=== PATIENT | male | born 1955 | race Caucasian/White ===

== ENCOUNTER 2019-06-19 07:39 | Day surgery (SDC) | payer BC ==
[~2019-06-19 07:39] MED LIST: Lactated Ringers 1,000 ML IV SCH; Lidocaine 1%/Sod Bicarbonate in NS 8.4% 1 ML Syringe IDERM PRN; Sodium Chloride 0.9% 10 ML Syringe FLUSH PRN
[2019-06-19] MEDS ORDERED: Lidocaine 1% 4 ML ONE (09:07)
[2019-06-19] MEDS ORDERED: Propofol 200 MG/20 ML SDV ONE ×2 (09:07→09:44)
--- NOTE | 2019-06-19 09:30 | PCM.PREANE ---
Preanesthetic Assessment - Anesthesia/Transfusion/Family Hx Anesthesia History: Prior Anesthesia Without Reaction Family History of Anesthesia Reaction: No Transfusion History: No Prior Transfusion(s) - Review of Systems General: No Symptoms Pulmonary: No Symptoms Cardiovascular: No Symptoms Gastrointestinal: No Symptoms Neurological: No Symptoms Other: Reports: None - Physical Assessment NPO Status Date: 06/18/19 NPO Status Time: 19:00 Vital Signs: Last Vital Signs Temp 36.8 C 06/19/19 07:55 Pulse 95 06/19/19 07:55 Resp 16 06/19/19 07:55 BP 134/91 H 06/19/19 07:55 Pulse Ox 94 L 06/19/19 07:55 Height: 1.75 m Weight: 104.78 kg ASA Class: 2 Mental Status: Alert & Oriented x3 Airway Class: Mallampati = 2 Dentition: Reports: Normal Dentition Thyro-Mental Finger Breadths: 3 Mouth Opening Finger Breadths: 3 ROM/Head Extension: Full Lungs: Clear to Auscultation, Normal Respiratory Effort Cardiovascular: Regular Rate, Regular Rhythm - Lab Values: Laboratory Last Values POC Glucose 127 mg/dL (80-115) H 06/19/19 08:55 - Allergies Allergies/Adverse Reactions: Allergies Allergy/AdvReac Type Severity Reaction Status Date / Time No Known Allergies Allergy Verified 06/18/19 17:56 - Acknowledgements Anesthesia Type Planned: MAC Pt an Appropriate Candidate for the Planned Anesthesia: Yes Alternatives and Risks of Anesthesia Discussed w Pt/Guardian: Yes Pt/Guardian Understands and Agrees with Anesthesia Plan: Yes PreAnesthesia Questionnaire HEENT History: Reports: Impaired Vision Cardiovascular History: Reports: High Cholesterol, Hypertension Respiratory History: Reports: None Genitourinary History: Reports: None Musculoskeletal History: Reports: Gout, Osteoporosis Neurological History: Reports: None Psychiatric History: Reports: None Endocrine/Metabolic History: Reports: Diabetes, Type II (pt denies DM, states is borderline so on short term medication and diet and recheck in 4 months BS 127 @ 0855) Hematologic History: Reports: None Immunologic History: Reports: None Oncologic (Cancer) History: Reports: None Dermatologic History: Reports: None - Past Surgical History Head Surgeries/Procedures: Reports: None Cardiovascular Surgical History: Reports: None Respiratory Surgical History: Reports: None GI Surgical History: Reports: Colonoscopy Female Surgical History: Reports: None Male Surgical History: Reports: None Endocrine Surgical History: Reports: None Neurological Surgical History: Reports: None Musculoskeletal Surgical History: Reports: Knee Replacement, Shoulder Surgery Oncologic Surgical History: Reports: None Dermatological Surgical History: Reports: None - SUBSTANCE USE Smoking Status *Q: Former Smoker Recreational Drug Use History: No - HOME MEDS Home Medications: Home Meds Cholecalciferol (Vitamin D3) [Vitamin D3] 1,000 unit PO DAILY 06/18/19 [History] Lisinopril/Hydrochlorothiazide [Lisinopril-Hctz 10-12.5 mg Tab] 1 tab PO DAILY 06/18/19 [History] Multivitamin [Zoo Chews] 1 tab PO DAILY 06/18/19 [History] Simvastatin 20 mg PO DAILY 06/18/19 [History] metFORMIN HCl [Metformin HCl] 500 mg PO DAILY 06/18/19 [History] - CURRENT (IN HOUSE) MEDS Current Meds: Current Medications Lactated Ringer's (Ringers, Lactated) 1,000 mls @ 125 mls/hr IV ASDIRECTED CANDIDA Stop: 06/19/19 23:00 Last Admin: 06/19/19 08:15 Dose: 125 mls/hr Lidocaine/Sodium Bicarbonate (Buffered Lidocaine 1% In Ns 8.4%) 0.25 ml IDERM ONETIME PRN PRN Reason: Prior to IV Start Stop: 06/19/19 18:00 Last Admin: 06/19/19 08:14 Dose: 0.25 ml Sodium Chloride (Saline Flush) 10 ml FLUSH ASDIRECTED PRN PRN Reason: Keep Vein Open Stop: 06/19/19 18:00 Discontinued Medications Lidocaine HCl (Xylocaine-Mpf 1%) Confirm Administered Dose 4 mls @ as directed .ROUTE .STK-MED ONE Stop: 06/19/19 09:08 Propofol (Diprivan 20 Ml) Confirm Administered Dose 200 mg .ROUTE .STK-MED ONE Stop: 06/19/19 09:08
--- NOTE | 2019-06-19 10:24 | PCM48HPAN ---
Post Anesthesia Note - EVALUATION WITHIN 48HRS OF ANESTHETIC Vital Signs in Normal Range: Yes Patient Participated in Evaluation: Yes Respiratory Function Stable: Yes Airway Patent: Yes Cardiovascular Function Stable: Yes Hydration Status Stable: Yes Pain Control Satisfactory: Yes Nausea and Vomiting Control Satisfactory: Yes Mental Status Recovered: Yes Vital Signs: Last Vital Signs Temp 36.1 C 06/19/19 10:18 Pulse 72 06/19/19 10:18 Resp 16 06/19/19 10:18 BP 117/84 06/19/19 10:18 Pulse Ox 95 06/19/19 10:18
--- NOTE | 2019-06-19 10:58 | PCM.PRNOTE ---
- Free Text/Narrative Note: Date: 06/19/2019 Procedure: screening colonoscopy Endoscopist: Davy Giles MD Findings: fair prep. Ileocecal valve visualized. One single subcentimeter pedunculated polyp biopsied. No diverticular or hemorrhoidal disease noted. Detailed Report: The patient was taken to the endoscopy suite and placed in left lateral decubitus position. Timeout was performed, and monitored anesthesia care was initiated. Visual inspection of the anus revealed no abnormality. Digital rectal exam was unremarkable, the prostate felt normal. The lubricated colonoscope was inserted and advanced all the way to the ileocecal valve. The prep was noted to be fair, with some areas of sticky thick stool. Irrigation was used to clear mucosal surfaces, inspecting for pathology. A single subcentimeter pedunculated polyp was identified near the hepatic flexure. This was snared and cauterized. The polyp was successfully retrieved, and the base of the polyp appeared hemostatic. No additional pathology was identified on withdrawal of the scope. No diverticular disease was noted, no hemorrhoidal disease was noted on retroflexion of the scope within the rectum. The patient tolerated the procedure well. Davy Giles MD General Surgery
== END 2019-06-19 10:54 | disposition home or self-care (01) ==
LOC: JD.SDS 07:39
PROVIDERS: ATTEND Surgery
DX: Z12.11 Encounter for screening for malignant neoplasm of colon (principal); D12.3 Benign neoplasm of transverse colon; I10 Essential (primary) hypertension; E78.00 Pure hypercholesterolemia, unspecified; E11.9 Type 2 diabetes mellitus without complications; M17.10 Unilateral primary osteoarthritis, unspecified knee; Z87.891 Personal history of nicotine dependence; Z79.84 Long term (current) use of oral hypoglycemic drugs; Z79.899 Other long term (current) drug therapy
CPT/HCPCS: 45385; 82962; J2001; J2704; J7120; 00812

== ENCOUNTER 2021-03-30 00:17 | Emergency (ER) | payer BC ==
[2021-03-30] MEDS ORDERED: Ondansetron 4 MG/2 ML SDV IVPUSH ONE (00:32)
[2021-03-30] MEDS ORDERED: HYDROmorphone 1 MG/ML Syringe IVPUSH ONE (00:32)
[2021-03-30] MEDS ORDERED: Sodium Chloride 0.9% 1,000 ML IV SCH (00:45)
--- NOTE | 2021-03-30 00:52 | EDM.PDOC ---
ED HPI GENERAL MEDICAL PROBLEM - General Chief Complaint: Chest Pain Time Seen by Provider: 03/30/21 00:24 Source of Information: Reports: Patient, Family () History Limitations: Reports: Physical Impairment (Pain limiting patient's ability to answer questions) - History of Present Illness INITIAL COMMENTS - FREE TEXT/NARRATIVE: Mr. Garcia is a very pleasant 66-year-old gentleman who now presents the ED stating that he was woken from sleep around 10 minutes prior to coming to the ED with severe left-sided chest pain - he points with 2 fingers just to the left of his upper sternum. He is unable to describe the character of the pain, but states that it is a throbbing pain, made worse with deep breaths and movement. He states that the pain radiates down his left upper extremity and through to his back between his scapula. No associated nausea, dyspnea, diaphoresis, or sense of impending doom. The patient states that he has been experiencing the same pain on and off for the past few weeks. He has seen his chiropractor about it numerous times, including at 18:30 this evening. He states that his chiropractor told him that he has a "rib out". The patient states that he has not been taking any analgesics to address his pain. 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 Here in the ED, the patient's initial BP was found to be elevated at 163/122, otherwise, his vitals were within normal limits. He is afebrile, saturating 100% on room air. He appears to be very uncomfortable, nearly crying in pain. Other than the recurrent pain as described above, the patient denies having a recent fever, chills, sore throat, ear pain, nasal or sinus congestion, cough, dyspnea, palpitations, nausea, vomiting, constipation, diarrhea, abdominal pain, urinary symptoms, recent weight gain or weight loss, recent bloody bowel movements or black bowel movements, recent joint aches, headaches, or rashes. The patient's PCP is DILLON Myers. He has received a COVID vaccination, although no influenza vaccination this season. Left Chest Pain Score (Numeric/FACES): 10 - Related Data Allergies Allergy/AdvReac Type Severity Reaction Status Date / Time No Known Allergies Allergy Verified 03/30/21 00:26 Home Meds: Home Meds Cholecalciferol (Vitamin D3) [Vitamin D3] 1,000 unit PO DAILY 06/18/19 [History] Lisinopril/Hydrochlorothiazide [Lisinopril-Hctz 10-12.5 mg Tab] 1 tab PO DAILY 06/18/19 [History] Multivitamin [Zoo Chews] 1 tab PO DAILY 06/18/19 [History] Simvastatin 20 mg PO DAILY 06/18/19 [History] metFORMIN HCl [Metformin HCl] 500 mg PO DAILY 06/18/19 [History] Orphenadrine [Norflex] 1 tab PO Q12H PRN #14 tab.er 03/30/21 [Rx] Past Medical History HEENT History: Reports: Impaired Vision Cardiovascular History: Reports: High Cholesterol, Hypertension Musculoskeletal History: Reports: Osteoarthritis Endocrine/Metabolic History: Reports: Obesity/BMI 30+, Other (See Below) (Prediabetes) - Past Surgical History HEENT Surgical History: Reports: Oral Surgery (dental extractions) GI Surgical History: Reports: Colonoscopy Musculoskeletal Surgical History: Reports: Knee Replacement (right), Shoulder Surgery (left, arthroscopic) Social & Family History - Tobacco Use Tobacco Use Status *Q: Never Tobacco User Tobacco Use Within Last Twelve Months: Smokeless Tobacco (Previously chewed) - Caffeine Use Caffeine Use: Reports: Energy Drinks - Alcohol Use Alcohol Use History: Yes Alcohol Use Frequency: Socially - Recreational Drug Use Recreational Drug Use: No - Living Situation & Occupation Living situation: Reports: , with Spouse 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 ED EXAM, GENERAL - Physical Exam Exam: See Below Exam Limited By: No Limitations General Appearance: Alert, WD/WN, Moderate Distress (complaining of severe pain - nearly crying) Eye Exam: Bilateral Eye: EOMI, Normal Inspection Ears: Normal External Exam, Hearing Grossly Normal Nose: Normal Inspection Throat/Mouth: Normal Inspection, Normal Lips, Normal Voice, No Airway Compromise Head: Atraumatic, Normocephalic Neck: Normal Inspection, Full Range of Motion Respiratory/Chest: No Respiratory Distress, Lungs Clear, Normal Breath Sounds, No Accessory Muscle Use, Other (Reproducible tenderness to palpation of the chest just left of the sternum. Pain is also reproduced by having the patient press his hands together with outstretched arms in front of him, or taking a deep breath.). No: Decreased Breath Sounds, Crackles, Rhonchi, Wheezing, Stridor, Prolonged Expiration Cardiovascular: Normal Peripheral Pulses, Regular Rate, Rhythm, No Gallop, No JVD, No Murmur, No Rub Peripheral Pulses: 3+: Radial (L), Radial (R) GI/Abdominal: Normal Bowel Sounds, Soft, Non-Tender, No Organomegaly, No Distention, No Abnormal Bruit, No Mass Back Exam: Normal Inspection, Full Range of Motion, NT Extremities: Normal Inspection, Normal Range of Motion, Normal Capillary Refill Neurological: Alert, Oriented, Normal Cognition, No Motor/Sensory Deficits Psychiatric: Anxious Skin Exam: Warm, Dry, Intact, Normal Color, No Rash #1 Interpretation EKG Date: 03/30/21 Time: 00:20 Rhythm: NSR Rate (Beats/Min): 85 [place]: Normal P-Wave: Enlarged (? LAE) QRS: Normal ST-T: Normal (J-point elevation the 2V5, but no T wave inversions or reciprocal ST depressions) QT: Normal Comparison: NA - No Prior EKG Course - Vital Signs Last Recorded V/S: Last Vital Signs Temp 36.5 C 03/30/21 00:23 Pulse 87 03/30/21 00:23 Resp 18 03/30/21 00:23 BP 163/122 H 03/30/21 00:23 Pulse Ox 100 03/30/21 00:23 - Orders/Labs/Meds Orders: Active Orders 24 hr Category Date Time Status Chest 1V Frontal [CR] Stat Exams 03/30/21 00:32 Taken Chest Abdomen Pelvis w Cont [CT] Stat Exams 03/30/21 00:42 Taken Labs: Laboratory Tests 03/30/21 03/30/21 03/30/21 Range/Units 00:25 00:25 00:25 WBC 10.45 H (4.23-9.07) K/mm3 RBC 5.12 (4.63-6.08) M/mm3 Hgb 16.6 (13.7-17.5) gm/dl Hct 47.2 (40.1-51.0) % MCV 92.2 (79.0-92.2) fl MCH 32.4 H (25.7-32.2) pg MCHC 35.2 (32.2-35.5) g/dl RDW Std Deviation 44.3 H (35.1-43.9) fL Plt Count 322 (163-337) K/mm3 MPV 9.2 L (9.4-12.3) fl Neutrophils % (Manual) 37 L (40-60) % Band Neutrophils % 0 (0-10) % Lymphocytes % (Manual) 53 H (20-40) % Atypical Lymphs % 0 % Monocytes % (Manual) 7 (2-10) % Eosinophils % (Manual) 3 (0.8-7.0) % Basophils % (Manual) 0 L (0.2-1.2) Platelet Estimate Adequate RBC Morph Comment Normal D-Dimer, Quantitative 0.47 (0.19-0.50) mg/L Sodium 142 (136-145) mEq/L Potassium 3.3 L (3.5-5.1) mEq/L Chloride 104 (98-107) mEq/L Carbon Dioxide 26 (21-32) mEq/L Anion Gap 15.3 H (5-15) BUN 15 (7-18) mg/dL Creatinine 1.5 H (0.7-1.3) mg/dL Est Cr Clr Drug Dosing 49.75 mL/min Estimated GFR (MDRD) 47 (>60) mL/min BUN/Creatinine Ratio 10.0 L (14-18) Glucose 173 H (70-99) mg/dL Calcium 8.8 (8.5-10.1) mg/dL Total Bilirubin 0.4 (0.2-1.0) mg/dL AST 37 (15-37) U/L ALT 56 (16-63) U/L Alkaline Phosphatase 45 L (46-116) U/L Troponin I < 0.017 (0.00-0.056) ng/mL NT-Pro-B Natriuret Pep (0-125) pg/mL Total Protein 7.5 (6.4-8.2) g/dl Albumin 4.1 (3.4-5.0) g/dl Globulin 3.4 gm/dL Albumin/Globulin Ratio 1.2 (1-2) SARS-CoV-2 RNA (MAULIK) (NEGATIVE) 03/30/21 03/30/21 Range/Units 00:25 01:23 WBC (4.23-9.07) K/mm3 RBC (4.63-6.08) M/mm3 Hgb (13.7-17.5) gm/dl Hct (40.1-51.0) % MCV (79.0-92.2) fl MCH (25.7-32.2) pg MCHC (32.2-35.5) g/dl RDW Std Deviation (35.1-43.9) fL Plt Count (163-337) K/mm3 MPV (9.4-12.3) fl Neutrophils % (Manual) (40-60) % Band Neutrophils % (0-10) % Lymphocytes % (Manual) (20-40) % Atypical Lymphs % % Monocytes % (Manual) (2-10) % Eosinophils % (Manual) (0.8-7.0) % Basophils % (Manual) (0.2-1.2) Platelet Estimate RBC Morph Comment D-Dimer, Quantitative (0.19-0.50) mg/L Sodium (136-145) mEq/L Potassium (3.5-5.1) mEq/L Chloride (98-107) mEq/L Carbon Dioxide (21-32) mEq/L Anion Gap (5-15) BUN (7-18) mg/dL Creatinine (0.7-1.3) mg/dL Est Cr Clr Drug Dosing mL/min Estimated GFR (MDRD) (>60) mL/min BUN/Creatinine Ratio (14-18) Glucose (70-99) mg/dL Calcium (8.5-10.1) mg/dL Total Bilirubin (0.2-1.0) mg/dL AST (15-37) U/L ALT (16-63) U/L Alkaline Phosphatase (46-116) U/L Troponin I (0.00-0.056) ng/mL NT-Pro-B Natriuret Pep 32 (0-125) pg/mL Total Protein (6.4-8.2) g/dl Albumin (3.4-5.0) g/dl Globulin gm/dL Albumin/Globulin Ratio (1-2) SARS-CoV-2 RNA (MAULIK) Negative (NEGATIVE) Meds: Medications Discontinued Medications Generic Name Dose Route Start Last Admin Trade Name Freq PRN Reason Stop Dose Admin Hydromorphone HCl 1 mg 03/30/21 00:32 03/30/21 00:46 Hydromorphone 1 Mg/Ml Syringe IVPUSH 03/30/21 00:33 1 mg ONETIME ONE Administration Sodium Chloride 1,000 mls @ 100 mls/hr 03/30/21 00:45 03/30/21 01:21 Normal Saline IV 100 mls/hr ASDIRECTED CANDIDA Administration Ibuprofen 600 mg 03/30/21 01:47 03/30/21 01:54 Ibuprofen 600 Mg Tab PO 03/30/21 01:48 600 mg ONETIME ONE Administration Ondansetron HCl 4 mg 03/30/21 00:32 03/30/21 00:42 Ondansetron 4 Mg/2 Ml Sdv IVPUSH 03/30/21 00:33 4 mg ONETIME ONE Administration Orphenadrine Citrate 100 mg 03/30/21 01:47 03/30/21 01:54 Orphenadrine 100 Mg Tab.Er PO 03/30/21 01:48 100 mg ONETIME STA Administration - Re-Assessments/Exams Free Text/Narrative Re-Assessment/Exam: 03/30/21 00:48 The 3-week course of his pain, temporarily made better by chiropractic manipulation, the fact that it awoke him from sleep, the severity of the pain and the focal site of it just left of his sternum, and the reproducibility of it with his taking deep breaths, palpation, movement, or flexion of his left pectoralis muscle all indicates a musculoskeletal etiology, however, because of his report that the pain radiates down his left upper extremity and through to his back between his scapula a raises the concern of an aortic dissection. An ECG, obtained at triage, demonstrates some J-point elevations in V2V5, but with no T wave inversions or reciprocal changes. I have therefore ordered a CT angiogram of the aorta to evaluate, along with several blood tests and a portable chest x-ray. In the event that he requires admission or transfer, he will also be swabbed for the SARS-CoV-2 virus. In the meantime, the patient has already been given some IV Dilaudid and IV Zofran. He will be given IV fluid. 03/30/21 01:18 On preliminary review of the CT angiogram of the chest, abdomen, and pelvis, I see no aortic aneurysm or dissection. 03/30/21 01:25 Following IV Dilaudid, patient now appears to be quite comfortable. 03/30/21 01:44 CT angiogram of the chest is read by [facility] as: 1. No aortic dissection. 2. No cause for acute pain is identified. CT angiogram of the abdomen and pelvis is read by [facility] as: 1. No cause for acute pain is identified. 2. No aortic dissection. Portable chest radiograph appears to be grossly normal. The cardiac silhouette is within normal limits. No pulmonary vascular congestion. No pleural effusions seen on this AP view. No focal infiltrate. No pneumothorax. Formal read per the Radiologist pending. The patient's CBC is remarkable for mild leukocytosis of 10.45, but with 0% bandemia, and the remainder of his CBC being unremarkable. His CMP is remarkable for slight hypokalemia of 3.3, a Cr mildly elevated at 1.5 with a BUN normal at 15, and hyperglycemia of 173, with remainder of his CMP being unremarkable. His troponin is undetectably low. His D-dimer is within normal limits at 0.47. Results of the patient's swab for the SARS-CoV-2 virus is still pending. 03/30/21 02:21 The patient's swab for the SARS-CoV-2 virus is negative. 03/30/21 02:35 Test results discussed with the patient and his . At this time, he is pain- free, and appears comfortable. I explained that his chest pain was most likely musculoskeletal in etiology. He has been started on Norflex and ibuprofen, and I will submit a prescription for Norflex to the [facility]. He will take work off today. Departure - Departure Time of Disposition: 02:36 Disposition: Home, Self-Care 01 Condition: Good Clinical Impression: Musculoskeletal chest pain, Hyperglycemia, Renal insufficiency - Discharge Information *PRESCRIPTION DRUG MONITORING PROGRAM REVIEWED*: Not Applicable *COPY OF PRESCRIPTION DRUG MONITORING REPORT IN PATIENT LARRY: Not Applicable Prescriptions: Orphenadrine [Norflex] 1 tab PO Q12H PRN #14 tab.er PRN Reason: Muscle Spasm - Painful Instructions: Hyperglycemia, [id number], Nonspecific Chest Pain, Adult, [id number] Referrals: Brendan Betts PA-C [Physician [employer] And Se[employer] Manager] - Forms: ED Department Discharge Additional Instructions: You were seen in the emergency room after being woken with severe left-sided chest pain radiating through to your back and down your left arm. Work-up in the ER included numerous blood tests, a swab for the SARS-CoV-2 virus, a chest x-ray, a CT angiogram of your chest, abdomen, and pelvis, and an ECG. Your work-up found your blood sugar to be modestly elevated at 173, and your kidney function to be somewhat impaired. The remainder of your work-up was unremarkable. Based on your history, physical exam, and ER tests, the cause of your chest pain was most likely due to a muscle spasm. You have been started on the muscle relaxant Norflex, and a prescription for Norflex has been sent to the [facility], located at [facility]. [facility]. Take 1 tablet of Norflex every 12 hours, starting this morning, 03/30/2021, as prescribed. Norflex works well with ibuprofen. We recommend that you take 3 tablets (600 mg) of [id number] ibuprofen up to every 8 hours, with food, as needed for discomfort. We do not recommend that you take ibuprofen for more than a few days. If your symptoms persist, please follow-up with your PCP, DILLON Myers. If any other problems, please do not hesitate to return to the ER. Sepsis Event Note (ED) - Evaluation Sepsis Screening Result: No Definite Risk - Focused Exam Vital Signs: Vital Signs Temp Pulse Resp BP Pulse Ox 03/30/21 00:23 36.5 C 87 18 163/122 H 100 - My Orders Last 24 Hours: My Active Orders 03/30/21 00:32 Chest 1V Frontal [CR] Stat 03/30/21 00:42 Chest Abdomen Pelvis w Cont [CT] Stat - Assessment/Plan Last 24 Hours: My Active Orders 03/30/21 00:32 Chest 1V Frontal [CR] Stat 03/30/21 00:42 Chest Abdomen Pelvis w Cont [CT] Stat
[2021-03-30] MEDS ORDERED: Orphenadrine 100 MG Tab.ER PO STA (01:47)
[2021-03-30] MEDS ORDERED: Ibuprofen 600 MG Tab PO ONE (01:47)
--- NOTE | 2021-03-30 07:09 | CT ---
CT chest Technique: Multiple axial sections through the chest were obtained. Intravenous contrast was utilized with contrast obtained in arterial phase. Reconstructed coronal and sagittal images were obtained. Comparison: No prior chest imaging is available. Findings: Thoracic aorta shows no aneurysm. No dissection is seen. No aortic ulcer is seen. Visualized pulmonary artery shows no discrete filling defects. Mediastinum and hilar regions show no adenopathy. No axillary adenopathy is appreciated. No pericardial thickening is seen. Lung window settings were reviewed which show no acute parenchymal change. Bone window settings were reviewed. Scattered disc space narrowing and endplate spurring is seen throughout the spine. Vacuum disc phenomena is seen within the L2-3 and L4-5 discs. Degenerative change is noted within the acromioclavicular joints and within both glenohumeral joints. No acute osseous finding is seen. Impression: 1. Degenerative change within the osseous structures as noted above. 2. No abnormality is seen within the thoracic aorta. 3. Nothing acute is seen on CT study of the chest. Diagnostic code #2 I agree with preliminary report from [facility] finalized on 03/30/21, 2:25 AM CDT, code 1 CT abdomen and pelvis Technique: Multiple axial sections were obtained from above the dome of the diaphragm inferiorly through the pubic symphysis. Intravenous contrast was utilized. No oral contrast has been given. Reconstructed coronal and sagittal images were obtained. Comparison: No prior abdominal imaging is available. Findings: Liver shows no focal abnormality. Gallbladder contains no calcified gallstones. Spleen size is normal. Adrenal glands show no nodule. Pancreas is within normal limits. Kidneys show symmetric contrast enhancement without hydronephrosis or mass. Abdominal aorta shows no aneurysm or dissection. Celiac axis and superior mesenteric artery are patent. Both renal arteries are patent. Patency of the inferior mesenteric artery is also noted. No retroperitoneal adenopathy or mesenteric abnormalities are seen. Appendix is seen which is normal. No pelvic mass or adenopathy is seen. Bone window settings were reviewed which were described above. Impression: 1. No abdominal aortic aneurysm or dissection is seen. Peripheral arteries appear to be patent. 2. Degenerative change as described above within the spine. 3. No acute abnormality is otherwise seen on CT study of the abdomen and pelvis. Diagnostic code #2 I agree with preliminary report from [facility] finalized on 03/30/21, 2:25 AM CDT
--- NOTE | 2021-03-30 08:52 | CR ---
Chest: Frontal view of the chest was obtained. Comparison: Prior chest CT study performed earlier on the same day (12:56 AM). Heart size and mediastinum are normal. Lungs are clear with no acute parenchymal change. Bony structures show nothing acute. Impression: 1. Nothing acute is seen on frontal chest x-ray. Diagnostic code #1
== END 2021-03-30 02:50 | disposition home or self-care (01) ==
LOC: JD.ED 00:17
DX: R07.89 Other chest pain (principal); R73.9 Hyperglycemia, unspecified; N28.9 Disorder of kidney and ureter, unspecified; E78.00 Pure hypercholesterolemia, unspecified; I10 Essential (primary) hypertension; F17.220 Nicotine dependence, chewing tobacco, uncomplicated; E66.9 Obesity, unspecified; Z68.35 Body mass index [BMI] 35.0-35.9, adult; Z79.899 Other long term (current) drug therapy; Z20.822 Contact with and (suspected) exposure to COVID-19
CPT/HCPCS: 36415; 71045; 71260; 74177; 80053; 83880; 84484; 85007; 85027; 85379; 87635; 93005; 96374; 96375; 99285; A9270; J1170; J2405; J7030; U0002

== ENCOUNTER 2021-09-11 08:59 | Emergency (ER) | payer BC ==
[2021-09-11] MEDS ORDERED: Nitroglycerin 2% Oint 1 GM UD Packet TOP ONE (09:52)
[2021-09-11] MEDS ORDERED: Nitroglycerin 0.4 MG Tab.SL SL PRN (09:52)
== END 2021-09-11 14:45 | disposition home or self-care (01) ==
LOC: JD.ED 08:59
DX: R07.89 Other chest pain (principal); E78.00 Pure hypercholesterolemia, unspecified; I10 Essential (primary) hypertension; E66.9 Obesity, unspecified; M19.90 Unspecified osteoarthritis, unspecified site; Z68.35 Body mass index [BMI] 35.0-35.9, adult; Z79.82 Long term (current) use of aspirin; Z79.02 Long term (current) use of antithrombotics/antiplatelets; Z79.899 Other long term (current) drug therapy
CPT/HCPCS: 36415; 71045; 80053; 84484; 85025; 93005; 99285; A9270

== ENCOUNTER 2023-11-22 06:43 | Day surgery (SDC) | payer MEDICARE ==
[~2023-11-22 06:43] MED LIST changes: -Lactated Ringers 1,000 ML IV SCH; -Lidocaine 1%/Sod Bicarbonate in NS 8.4% 1 ML Syringe IDERM PRN; +Sodium Chloride 0.9% 10 ML Syringe FLUSH SCH
[2023-11-22] MEDS ORDERED: Propofol 200 MG/20 ML SDV ONE (07:38)
[2023-11-22] MEDS: Lactated Ringers 1,000 ML IV SCH (08:21)
== END 2023-11-22 08:15 | disposition home or self-care (01) ==
LOC: JD.SDS 06:43
PROVIDERS: ATTEND Surgery
DX: Z12.11 Encounter for screening for malignant neoplasm of colon (principal); F41.9 Anxiety disorder, unspecified; I10 Essential (primary) hypertension; E66.9 Obesity, unspecified; E78.00 Pure hypercholesterolemia, unspecified; Z79.82 Long term (current) use of aspirin; Z86.010 Personal history of colon polyps; Z79.84 Long term (current) use of oral hypoglycemic drugs; Z79.899 Other long term (current) drug therapy; Z68.37 Body mass index [BMI] 37.0-37.9, adult
CPT/HCPCS: 45378; J2704; J7120